=== PATIENT | male | born 1945 | race Caucasian/White ===

== ENCOUNTER 2018-02-07 17:26 | Inpatient (IN) | payer OTHER, MEDICAID ==
[~2018-02-07] VITALS: Ht 170.2 cm; Wt 101.6 kg
[2018-02-07 19:37] LABS: BASOPHIL % 0.2 % (0-2); PLATELET COUNT 211 x10^3mcL (130-400); RED CELL DISTRIBUTION WIDTH 13.5 % (11.5-14.5)
[2018-02-07 19:41] LABS: CALCIUM 8.2 mg/dL (8.5-10.1); CARBON DIOXIDE 24.4 mmol/L (21-32); CHLORIDE SERUM 101 mmol/L (98-107); CREATININE SERUM 0.9 mg/dL (0.7-1.3); GFR1 > 60 mL/min; GLUCOSE SERUM 109 mg/dL (74-106); POTASSIUM SERUM 3.9 mmol/L (3.5-5.1); SODIUM SERUM 135 mmol/L (136-145)
[2018-02-07 19:46] LABS: ALBUMIN 3.4 g/dL (3.4-5.0); ALKALINE PHOSPHATASE 75 U/L (46-116); ALT/SGPT 31 U/L (16-63); AST/SGOT 20 U/L (15-37); BILIRUBIN TOTAL 0.42 mg/dL (0.20-1.00); CHOLESTEROL 147 mg/dL (<200); HDL CHOLESTEROL 39 mg/dL (40-60); TOTAL PROTEIN, SERUM 7.9 g/dL (6.4-8.2)
[2018-02-07 21:37] LABS: CHOLESTEROL/HDL RATIO 3.9; MAGNESIUM 2.2 mg/dL (1.8-2.4)
[2018-02-07 21:39] LABS: microscopic required? NO
[2018-02-07 21:42] LABS: T3 TOTAL 0.75 ng/mL
[2018-02-07 21:43] LABS: FREE T4 0.82 ng/dL (0.76-1.46); FREE THYROXINE INDEX 1.8 ug/dL (1.4-4.5)
[2018-02-07 21:49] LABS: UA SPECIFIC GRAVITY 1.025 (1.005-1.035); urine erythrocyte NEGATIVE (NEGATIVE)
[2018-02-07 22:09] VITALS: BP 141/92
[2018-02-07 22:19] VITALS: Ht 170.2 cm; Wt 101.6 kg
[2018-02-08 04:00] VITALS: BP 141/92
[2018-02-08 04:47] VITALS: BP 110/72
[2018-02-08 06:22] LABS: BASOPHIL % 0.2 % (0-2); PLATELET COUNT 199 x10^3mcL (130-400)
[2018-02-08 06:55] LABS: CALCIUM 7.8 mg/dL (8.5-10.1); CARBON DIOXIDE 24.8 mmol/L (21-32); CHLORIDE SERUM 101 mmol/L (98-107); CREATININE SERUM 0.9 mg/dL (0.7-1.3); GFR1 > 60 mL/min; GLUCOSE SERUM 108 mg/dL (74-106); POTASSIUM SERUM 4.1 mmol/L (3.5-5.1); SODIUM SERUM 132 mmol/L (136-145)
[2018-02-08 09:23] VITALS: BP 111/75
[2018-02-08 13:40] VITALS: BP 110/72
[2018-02-08 17:45] VITALS: BP 117/73
[2018-02-08 20:48] VITALS: BP 122/81
[2018-02-09 05:57] VITALS: BP 129/80
[2018-02-09 06:35] LABS: CALCIUM 8.8 mg/dL (8.5-10.1); CARBON DIOXIDE 25.2 mmol/L (21-32); CHLORIDE SERUM 101 mmol/L (98-107); CREATININE SERUM 0.9 mg/dL (0.7-1.3); GFR1 > 60 mL/min; GLUCOSE SERUM 163 mg/dL (74-106); POTASSIUM SERUM 4.3 mmol/L (3.5-5.1); SODIUM SERUM 138 mmol/L (136-145)
[2018-02-09 06:37] LABS: BASOPHIL % 0.1 % (0-2); PLATELET COUNT 240 x10^3mcL (130-400); RED CELL DISTRIBUTION WIDTH 13.7 % (11.5-14.5)
[2018-02-09 08:44] VITALS: BP 130/89
[2018-02-09 13:53] VITALS: BP 124/92
[2018-02-09 18:15] VITALS: BP 119/81
[2018-02-09 20:32] VITALS: BP 120/81
[2018-02-10 05:25] VITALS: BP 129/79
[2018-02-10 06:35] LABS: PLATELET COUNT 259 x10^3mcL (130-400); RED CELL DISTRIBUTION WIDTH 13.5 % (11.5-14.5)
[2018-02-10 06:51] LABS: CALCIUM 8.8 mg/dL (8.5-10.1); CHLORIDE SERUM 103 mmol/L (98-107); CREATININE SERUM 0.9 mg/dL (0.7-1.3); GFR1 > 60 mL/min; GLUCOSE SERUM 150 mg/dL (74-106); POTASSIUM SERUM 4.3 mmol/L (3.5-5.1); SODIUM SERUM 137 mmol/L (136-145)
[2018-02-10 07:08] LABS: BASOPHIL % 0 % (0-2)
[2018-02-10 09:48] VITALS: BP 121/81
[2018-02-10] MEDS ORDERED: BD LACTINEX1.4 MG PO (12:05)
[2018-02-10] MEDS ORDERED: CLINDAMYCIN HC300 MG PO (12:05)
[2018-02-10] MEDS ORDERED: MEDDP PO (12:05)
[2018-02-10] MEDS ORDERED: LEVAQUIN750 MG PO (12:05)
[2018-02-10] MEDS ORDERED: METFORMIN HCL500 MG PO (12:12)
[2018-02-10 12:34] VITALS: BP 121/81
== END 2018-02-10 14:25 | disposition home or self-care (01) | DRG 177 ==
LOC: ED 17:26 → DU 21:00
PROVIDERS: Emergency Medicine; Family Medicine
DX: J69.0 Pneumonitis due to inhalation of food and vomit (principal); N17.0 Acute kidney failure with tubular necrosis; E87.1 Hypo-osmolality and hyponatremia; K21.9 Gastro-esophageal reflux disease without esophagitis; G90.8 Other disorders of autonomic nervous system; R55 Syncope and collapse; I51.7 Cardiomegaly; E66.01 Morbid (severe) obesity due to excess calories; Z68.35 Body mass index [BMI] 35.0-35.9, adult; Z22.322 Carrier or suspected carrier of Methicillin resistant Staphylococcus aureus
CPT/HCPCS: 83880; 84439; 87804; 94150; 97110-GP; 97116-GP; 97530-GP; 97535-GP; J0456; J0696; J1885; J1940; J1956; J2920; J2930; J3490; J7030; J7050; J7620; Q0092